=== PATIENT | male | born 1950 | race Caucasian/White ===

== ENCOUNTER 2021-01-28 09:15 | Outpatient (CLI) | payer OTHER, SELFPAY ==
[2021-01-28 10:03] LABS: Basophils # 0.1 10^3/uL (0.0-0.1); Eosinophils # 0.5 10^3/uL (0.0-0.8); Hematocrit 39.6 % (42.0-52.0); Hemoglobin 13.3 g/dL (11.7-16.6); Lymphocytes # 2.7 10^3/uL (0.8-4.8); Lymphocytes % 31.7 %; Mean Corpuscular HGB Conc 33.6 g/dL (30.0-36.0); Mean Corpuscular Hemoglobin 30.3 pg (28.0-34.0); Mean Corpuscular Volume 90.2 fL (80-94); Mean Platelet Volume 9.4 fL (7.4-10.4); Monocytes # 0.7 10^3/uL (0.2-0.9); Neutrophils # 4.55 10^3/uL (1.8-7.7); Nucleated Red Blood Cells % 0 %; Platelet Count 378 10^3/cmm (130-400); Red Blood Count 4.39 10^6/uL (4.1-5.3); Red Cell Distribution Width 13.3 % (12.1-15.1); White Blood Count 8.6 10^3/uL (4.0-10.0)
[2021-01-28 11:57] LABS: Lactate Dehydrogenase 156 U/L (135-225)
[2021-01-28 12:31] LABS: Immunoglobulin IGA 119 mg/dL (70-400); Immunoglobulin IGG 921 mg/dL (700-1600)
[2021-01-28 13:26] LABS: Immunoglobulin IGM 21 mg/dL (40-230)
[2021-01-29 07:28] LABS: PROTEIN, TOTAL 6.4 g/dL (6.1-8.1)
[2021-01-29 15:17] LABS: ABNORMAL PROTEIN BAND 1 0.1 g/dL (NONE DETECTED); ALPHA 1 GLOBULIN 0.3 g/dL (0.2-0.3); ALPHA 2 GLOBULIN 0.7 g/dL (0.5-0.9); BETA 1 GLOBULIN 0.4 g/dL (0.4-0.6); BETA 2 GLOBULIN 0.3 g/dL (0.2-0.5); GAMMA GLOBULIN 0.8 g/dL (0.8-1.7)
[2021-01-29 15:47] LABS: KAPPA LIGHT CHAIN, FREE, SERUM 175.9 mg/L (3.3-19.4); KAPPA/LAMBDA LIGHT CHAINS FREE 7.39 (0.26-1.65); LAMBDA LIGHT CHAIN, FREE, SERU 23.8 mg/L (5.7-26.3)
--- NOTE | 2021-02-01 12:56 | ONC CON_ITS ---
Dr. Flores New Patient Note Patient: Puneet Sheppard Unit #: [id number]: 1950 Dicatated By: Anastasia Flores M.D.Date of Visit: Jan 28, 2021 Onc MED New Patient/Consult Referring Physician: Dr. JOSE SEWELL M.D. History of Present Illness: Mr. Puneet Sheppard, is a 70-year-old gentleman with a history of gout, chronic renal disease, elevated PSA negative prostate biopsy, hypertension, found to have abnormal SPEP during routine follow-up and lab work-up done on December 06 2020, showed M spike is too small to quantitate, serum light chain showed kappa light chain 152, normal being 2.3-19.4, lambda chain 19 normal being 5.7-26.3, kappa/lambda ratio was 8 which is high as normal being 0.26-1.65. His other labs including CBC, white blood count was 8.6 hemoglobin 13.7 hematocrit 40.3 platelets 338,000 with a normal differential, creatinine was 1.57, calcium 9.5. Patient denies any new bony pains, denies any recurrent infections, denies any night sweats, denies any weight loss, denies any recurrent fever, denies any peripheral lymphadenopathy or abdominal fullness,. History of smoking but quit years ago, denies alcohol use. History of BPH and elevated PSA underwent prostate biopsy about a year ago it was negative. Past Medical History: Mr. Sheppard's medical history consists of bph, chronic kidney disease, elevated PSA, gout, hyperlipidemia, and hypertension. Past Surgical History: Mr. Sheppard's surgical/procedural history consists of colonoscopy and Eye Injury in 7. Medications: Cozaar 1 Tablet (of 100 mg) Oral, D 1000 1 Caplet (of 25 mcg ) Capsule Oral daily, hydroCHLOROthiazide 1 Tablet (of 25 mg) Oral daily, Pravastatin Sodium 1 Tablet (of 20 mg) Oral daily Allergies: No Known Allergies. Social History: Mr. Sheppard is single. Mr. Sheppard has never smoked. He has no history of drinking. Family History: Mr. Sheppard's mother at age 74: stroke. Mr. Sheppard's father at age 78: myocardial infarction. Mr. Sheppard has 2 brothers: 2 alive. Review Of Symptoms: Review of Systems is not available for this patient. Vital Signs: Performed on Jan 28, 2021 11:30: 0, 0, 0.00, 0.00 sq.m, 98 %, 61 /min, 18 /min, 160/90 mm(hg) (HIGH), 98.4 F, and 209.6 lbs (HIGH). Performance Status: 1 - No physically strenuous activity, but ambulatory and able to carry out light or sedentary work (e.g. office work, light house work). (ECOG) Physical Examination: ENMT - No mouth sores, no thrush, no jaundice, No lymphadenopathy, Respiratory - Lungs are clear to auscultation, Cardiovascular - Regular rate and rhythm of heart, Abdomen - Soft, bowel sounds present, Extremities - No visible edema. Lab/Imaging: Most recent lab results are not available for this patient. Impression: SPEP and elevated kappa/lambda light chain ratio with a high kappa light chain level etiology unclear could be due to plasma cell dyscrasia or lymphoplasmacytic lymphoproliferative disorder or amyloidosis History of gout History of BPH with elevated PSA with history of negative prostate biopsy Hypertension Chronic renal insufficiency Plan: Discussed with patient regarding his labs white blood count 8.6 hemoglobin 13.3 hematocrit 39.6 platelets 378,000 Clinically, patient has no new signs symptoms, there was incidental finding on his routine lab work-up which showed abnormal SPEP eg faint M protein and elevated kappa light chains and kappa/lambda ratio, etiology unclear could be due to underlying plasma cell dyscrasia lymphoplasmacytic lymphoproliferative disorder, or amyloidosis or serum light chain disease or gammopathy of unknown significance. At this point we will proceed with serum protein electrophoresis and immunofixation, repeat serum light chain assay, 24-hour urine protein electrophoresis and immunofixation, LDH and quantitative immunoglobulin Patient return to clinic in 2 weeks with above mentioned work-up to discuss further plan. Signed By: Anastasia Flores M.D. <<Signature on File>>
== END 2021-01-28 09:16 | disposition home or self-care (01) ==
PROVIDERS: Family Provider Emergency Medicine Emergency Medical Services; PCP Emergency Medicine Emergency Medical Services; Visit Provider Internal Medicine Hematology & Oncology
DX: R77.8 Other specified abnormalities of plasma proteins (principal); M10.9 Gout, unspecified; N40.0 Benign prostatic hyperplasia without lower urinary tract symptoms; R97.20 Elevated prostate specific antigen [PSA]; I10 Essential (primary) hypertension; N18.9 Chronic kidney disease, unspecified; Z79.899 Other long term (current) drug therapy
CPT/HCPCS: 82784; 83615; 83883; 84155; 84165; 85025; 99204

== ENCOUNTER 2021-02-14 05:37 | Outpatient (CLI) | payer OTHER, SELFPAY ==
--- NOTE | 2021-02-14 17:23 | ONC FU_ITS ---
Dr. Flores follow up note Patient: Puneet Sheppard Unit #: [id number]: 1950 Dicatated By: Anastasia Flores M.D.Date of Visit:Feb 14, 2021 Onc Med Follow-up/Prog Note History of Present Illness: Mr. Puneet Sheppard, is a 70-year-old gentleman with a history of gout, chronic renal disease, elevated PSA negative prostate biopsy, hypertension, found to have abnormal SPEP during routine follow-up and lab work-up done on December 06 2020, showed M spike is too small to quantitate, serum light chain showed kappa light chain 152, normal being 2.3-19.4, lambda chain 19 normal being 5.7-26.3, kappa/lambda ratio was 8 which is high as normal being 0.26-1.65. His other labs including CBC, white blood count was 8.6 hemoglobin 13.7 hematocrit 40.3 platelets 338,000 with a normal differential, creatinine was 1.57, calcium 9.5. Patient denies any new bony pains, denies any recurrent infections, denies any night sweats, denies any weight loss, denies any recurrent fever, denies any peripheral lymphadenopathy or abdominal fullness,. History of smoking but quit years ago, denies alcohol use. History of BPH and elevated PSA underwent prostate biopsy about a year ago it was negative. Repeat serum protein electrophoresis done on January 28, 2021 shows poorly defined band possibly M spike and immunofixation confirmed IgG lambda monoclonal band, IgG 921 IgM 21 IgA 119, 24-hour urine protein electrophoresis showed no abnormal protein is observed Serum light chain assay shows kappa light chain 175.9, normal being 3.3-19.4, lambda 23.8, within normal range and kappa/lambda ratio is 7.39 normal being 0.26-1.69 Came for follow-up, denies any specific complaints, denies any fever chills denies any nausea or vomiting denies any recurrent infections denies any bony pains denies any weight loss denies any night sweats denies any peripheral lymphadenopathy denies any abdominal fullness Medications: Cozaar 1 Tablet (of 100 mg) Oral, D 1000 1 Caplet (of 25 mcg ) Capsule Oral daily, hydroCHLOROthiazide 1 Tablet (of 25 mg) Oral daily, Pravastatin Sodium 1 Tablet (of 20 mg) Oral daily Allergies: No Known Allergies. Review of Systems: Review of Systems is not available for this patient. Vital Signs: Performed on Feb 14, 2021 08:37 Weight - 210.4 lbs (HIGH) BSA - 0.00 sq.m BMI - 0.00 Temperature - 99.0 F (HIGH) Pulse - 67 /min Respiration - 18 /min BP - 159/93 mm(hg) (HIGH) O2 Sat - 97 % Pain - 2 Fatigue - 0 Performance Status: 0 - Fully active, able to carry on all predisease activities without restrictions. (ECOG) Physical Examination: ENMT - No mouth sores, no thrush, no jaundice, no cervical lymphadenopathy, Respiratory - Lungs are clear to auscultation, Cardiovascular - Regular rate and rhythm of heart, Abdomen - Soft, bowel sounds present, Extremities - No visible edema. Lab/Imaging: Most recent lab results are not available for this patient. Impression: SPEP and elevated kappa/lambda light chain ratio with a high kappa light chain level etiology unclear could be due to plasma cell dyscrasia or lymphoplasmacytic lymphoproliferative disorder or amyloidosis Repeat SPEP Done on January 28, 2021 confirmed poorly defined band, possible M spike and serum protein immunofixation confirmed presence of IgG lambda monoclonal whereas serum light chain assay shows lambda light chain within normal range but elevated kappa light chain and kappa/blood ratio and quantitative immunoglobulin within normal range at, IgG 921, IgM 21, IgA 119 and 24-hour urine protein electrophoresis shows no abnormality History of gout History of BPH with elevated PSA with history of negative prostate biopsy Hypertension Chronic renal insufficiency Plan: Discussed with patient regarding his labs, his repeat serum protein electrophoresis shows poorly defined M spike and immunofixation confirmed this despite his due to IgG lambda monoclonal band but serum light chain assay shows lambda chains within normal range but elevated kappa light chain and kappa/lambda ratio, quantitative immunoglobulin within normal range, 24-hour urine protein electrophoresis shows no abnormality Overall picture consistent with etiology of elevated serum light chain could be reactive to autoimmune disorder or elevated due to chronic renal disease or may have underlying early plasma cell disorder or amyloidosis as per patient he has done some research on the Internet and think, it could be due to Covid vaccination and patient was reassured that any vaccination stimulate plasma cells in the bone marrow to create antibody and with his mild renal insufficiency there is a possibility but less likely discussed with him regarding bone marrow evaluation, patient wants to wait, so we will monitor him closely he will return to clinic in 1 month with a serum light chain assay and CMP, if abnormalities persist, will consider bone marrow evaluation to rule out malignant plasma cell disorder. And also consider CT scan of abdomen pelvis chest to rule out central lymphadenopathy or any abnormality suggestive of amyloidosis Signed By: Anastasia Flores M.D. <<Signature on File>>
== END 2021-02-14 05:38 | disposition home or self-care (01) ==
LOC: ONCMED 05:39
PROVIDERS: Family Provider Emergency Medicine Emergency Medical Services; PCP Emergency Medicine Emergency Medical Services; Visit Provider Internal Medicine Hematology & Oncology
DX: R77.8 Other specified abnormalities of plasma proteins (principal); I12.9 Hypertensive chronic kidney disease with stage 1 through stage 4 chronic kidney disease, or unspecified chronic kidney disease; N18.9 Chronic kidney disease, unspecified; Z87.891 Personal history of nicotine dependence
CPT/HCPCS: 99214

== ENCOUNTER 2021-03-18 12:28 | Outpatient (CLI) | payer OTHER, SELFPAY ==
[2021-03-18 13:56] LABS: Alanine Aminotransferase 17 U/L (0-41); Albumin Level 4.3 g/dL (3.5-5.2); Alkaline Phosphatase 60 IU/L (40-130); Anion Gap 14.6 (5-19); Aspartate Amino Transferase 16 U/L (0-40); Blood Urea Nitrogen 19 mg/dL (8-23); Carbon Dioxide 25 mmol/L (22-29); Chloride 106 mmol/L (98-107); Globulin 2.3 g/dL (1.3-4.6); Glucose 78 mg/dL (65-115); Osmolality Calculated 295 mOsm/kg (285-295); Potassium 3.6 mmol/L (3.5-5.1); Sodium 142 mmol/L (136-145); Total Bilirubin 0.4 mg/dL (0.15-1.2); Total Protein 6.6 g/dL (6.6-8.7)
--- NOTE | 2021-03-18 18:13 | ONC FU_ITS ---
Dr. Flores follow up note Patient: Puneet Sheppard Unit #: [id number]: 1950 Dicatated By: Anastasia Flores M.D.Date of Visit:March 18, 2021 Onc Med Follow-up/Prog Note History of Present Illness: Mr. Puneet Sheppard, is a 70-year-old gentleman with a history of gout, chronic renal disease, elevated PSA negative prostate biopsy, hypertension, found to have abnormal SPEP during routine follow-up and lab work-up done on December 06 2020, showed M spike is too small to quantitate, serum light chain showed kappa light chain 152, normal being 2.3-19.4, lambda chain 19 normal being 5.7-26.3, kappa/lambda ratio was 8 which is high as normal being 0.26-1.65. His other labs including CBC, white blood count was 8.6 hemoglobin 13.7 hematocrit 40.3 platelets 338,000 with a normal differential, creatinine was 1.57, calcium 9.5. Patient denies any new bony pains, denies any recurrent infections, denies any night sweats, denies any weight loss, denies any recurrent fever, denies any peripheral lymphadenopathy or abdominal fullness,. History of smoking but quit years ago, denies alcohol use. History of BPH and elevated PSA underwent prostate biopsy about a year ago it was negative. Repeat serum protein electrophoresis done on January 28, 2021 shows poorly defined band possibly M spike and immunofixation confirmed IgG lambda monoclonal band, IgG 921 IgM 21 IgA 119, 24-hour urine protein electrophoresis showed no abnormal protein is observed Serum light chain assay shows kappa light chain 175.9, normal being 3.3-19.4, lambda 23.8, within normal range and kappa/lambda ratio is 7.39 normal being 0.26-1.69 Came for follow-up, denies any specific complaints, no fever chills, no nausea or vomiting, no diarrhea or constipation, no new bony pains, appetite is good, no weight loss Medications: Cozaar 1 Tablet (of 100 mg) Oral, D 1000 1 Caplet (of 25 mcg ) Capsule Oral daily, hydroCHLOROthiazide 1 Tablet (of 25 mg) Oral daily, Pravastatin Sodium 1 Tablet (of 20 mg) Oral daily Allergies: No Known Allergies. Review of Systems: Review of Systems is not available for this patient. Vital Signs: Performed on March 18, 2021 14:09 Weight - 213.6 lbs (HIGH) BSA - 0.00 sq.m BMI - 0.00 Temperature - 97.5 F (LOW) Pulse - 84 /min Respiration - 18 /min BP - 152/92 mm(hg) (HIGH) O2 Sat - 93 % (LOW) Pain - 0 Fatigue - 3 Performance Status: 0 - Fully active, able to carry on all predisease activities without restrictions. (ECOG) Physical Examination: ENMT - No mouth sores, no thrush, no jaundice, Respiratory - Lungs are clear to auscultation, Cardiovascular - Regular rate and rhythm of heart , Abdomen - Soft, bowel sounds present, Extremities - No visible edema. Lab/Imaging: Most recent lab results are not available for this patient. Impression: SPEP and elevated kappa/lambda light chain ratio with a high kappa light chain level etiology unclear could be due to plasma cell dyscrasia or lymphoplasmacytic lymphoproliferative disorder or amyloidosis Repeat SPEP Done on January 28, 2021 confirmed poorly defined band, possible M spike and serum protein immunofixation confirmed presence of IgG lambda monoclonal whereas serum light chain assay shows lambda light chain within normal range but elevated kappa light chain and kappa/blood ratio and quantitative immunoglobulin within normal range at, IgG 921, IgM 21, IgA 119 and 24-hour urine protein electrophoresis shows no abnormality History of gout History of BPH with elevated PSA with history of negative prostate biopsy Hypertension Chronic renal insufficiency Plan: Discussed with patient regarding his labs CMP within normal limits, serum light chain assay is pending Clinically, patient doing well with no new signs symptom, CMP is within normal range, awaiting serum light chain assay if it shows further progression, will proceed with bone marrow evaluation and if it shows no increase in plasma cell population, then will consider CT scan of chest abdomen pelvis to rule out central lymphadenopathy/organomegaly. Return to clinic after reviewing serum light chain assay, If it shows progression, then week after bone marrow evaluation, if stable or improvement, then will repeat SPEP/immunofixation/serum light chain assay in 3 months Signed By: Anastasia Flores M.D. <<Signature on File>>
[2021-03-19 13:12] LABS: KAPPA LIGHT CHAIN, FREE, SERUM 154.7 mg/L (3.3-19.4); KAPPA/LAMBDA LIGHT CHAINS FREE 7.03 (0.26-1.65)
== END 2021-03-18 12:29 | disposition home or self-care (01) ==
LOC: ONCMED 12:30
PROVIDERS: Family Provider Emergency Medicine Emergency Medical Services; PCP Emergency Medicine Emergency Medical Services; Visit Provider Internal Medicine Hematology & Oncology
DX: R74.8 Abnormal levels of other serum enzymes (principal); M10.9 Gout, unspecified; N40.0 Benign prostatic hyperplasia without lower urinary tract symptoms; R97.20 Elevated prostate specific antigen [PSA]; I10 Essential (primary) hypertension; N18.9 Chronic kidney disease, unspecified; Z79.899 Other long term (current) drug therapy
CPT/HCPCS: 36415; 80053; 83883; 99214

== ENCOUNTER → 2024-05-17 11:01 | Outpatient (BNVA) | payer OTHER, SELFPAY | PROVIDERS: Family Provider Emergency Medicine Emergency Medical Services; PCP Emergency Medicine Emergency Medical Services; Visit Provider Student in an Organized Health Care Education/Training Program | DX: M79.644 Pain in right finger(s) (principal); M67.441 Ganglion, right hand | CPT/HCPCS: 73130; 99204 ==

== ENCOUNTER 2024-07-07 07:00 | Day surgery (SDC) | payer OTHER, SELFPAY ==
[2024-07-07] VITALS (11 sets, daily range): BP systolic 142–173; BP diastolic 89–100; PULSE 62–76; RESP 12–18; TEMP 36.3; O2SAT 96–99; BMI 29.9
[2024-07-07] MEDS: acetaminophen 1,000 MG/100 ML PIGGYBACK 400 MG IV (07:33)
[2024-07-07] MEDS: sodium chloride 0.9% 1,000 ML 30 ML IV (07:34)
[2024-07-07] MEDS: ketorolac 30 mg/mL INJ IVP (07:41)
--- NOTE | 2024-07-07 08:10 | W.PM.OPSFHP ---
Same Day Surgery H&P Indication for Procedure/HPI DATE OF PROCEDURE: July 07, 2024 CHIEF COMPLAINT/INDICATIONFOR SURGICAL PROCEDURE: Right index finger cyst PREOP DIAGNOSIS: Right index finger cyst PLANNED PROCEDURE: Operation Date: 07/07/24 08:40 Proposed Procedures p Excision Mass/Lesion Upper Extremity Finger Cyst Excision Left Index(Right) - Chris Linda, Medications/Allergies* Home Medications Medication Instructions Recorded Confirmed Type hydrochlorothiazide 12.5 mg tablet 12.5 mg PO DAILY 05/17/24 07/06/24 History losartan 100 mg tablet 100 mg PO DAILY 05/17/24 07/06/24 History pravastatin 20 mg tablet 20 mg PO DAILY 05/17/24 07/06/24 History ergocalciferol (vitamin D2) 10 mcg 10 mcg PO DAILY 07/06/24 07/06/24 History (400 unit) tablet Allergies/Adverse Reactions Allergy/AdvReac Type Severity Reaction Status Date / Time No Known Allergies Allergy Verified 07/06/24 15:13 Current Medications: Generic Name Dose Route Start Last Admin Trade Name Yancy PRN Reason Stop Dose Admin Sodium Chloride 1,000 mls @ 30 mls/hr 07/07/24 07:15 07/07/24 07:34 Sodium Chloride 0.9% IV 07/08/24 07:14 30 mls/hr .Q24H REY Administration Pertinent History/Comorbid Conditions* Social History Smoking and tobacco/nicotine status: unknown if used tobacco/nicotine Pertinent Exam Findings alert, oriented x 3, operative site marked and procedure specific exam findings For to detailed orthopedic examination on 05/17/2024: Examination of right hand: Examination right hand patient able to make a fist and extend the digits. He does have a palpable dorsal mucous cyst over the right index finger with subtle clinical deformity appreciated. Tenderness to palpation over the cyst as well as mildly positive Tinel's sensations intact light touch distally fingertip warm well-perfused brisk capillary refill less than 2 seconds. Recommendations Surgery/Procedure today Other Plans: Plan to proceed to the OR today for right index finger cyst excision we talked about the ins and outs procedure risk benefits complication alternatives surgery and through shared decision make elects proceed with surgical intervention. All questions answered at this time. Patient would like local only. Coding Level of Care Code Acute Code for [facility] Fwd
[2024-07-07] MEDS: ceFAZolin 2,000 MG in sodium chloride 0.9% (plus) 50 ML 100 MG IV (09:07)
[2024-07-07] MEDS: ROPivacaine 0.5% SDV 30 mL 150 MG INJECTION (09:34)
[2024-07-07] MEDS: BUPivacaine 0.5% INJ 30 mL XX (09:34)
--- NOTE | 2024-07-07 09:41 | P.BOP_ITS ---
Date of Procedure: 07/07/2024 Surgeon: Chris Linda DO [employer] Emotionally Disturbed(s): None Procedure(s) performed: Right index finger cyst excision Findings of the procedure(s): Patient was found to have a large right index finger cyst over the dorsal aspect of the middle phalanx underwent procedure as planned without issues or complications taken to recovery in stable condition Estimated blood loss: 2 mL Specimen(s) removed: Right index finger cyst excised and sent for pathology Post-operative diagnosis: Right index finger cyst
--- NOTE | 2024-07-07 09:42 | P.OP_ITS ---
Operative Report Date of procedure: July 07, 2024 Surgeon: Chris Linda DO Procedure: Preoperative diagnosis: Right index finger dorsal cyst post-op diagnosis: Right?index?finger?dorsal cyst Procedure done: Right index finger?dorsal cyst excision (2 cm x 1 cm x 0.5 cm) Surgeon: Chris Linda DO Estimated blood loss: 2mL Tourniquet time finger turnicot?9 minutes IV fluids: 100 mL Complications: None Findings: See operative report narrative Condition: stable Disposition: same day Brief History: Patient presents to the outpatient setting with findings consistent with a right index finger?cyst.? Patient has been worked up in the outpatient setting and is failed conservative treatment approach.? Patient has right index finger noticeable?dorsal?cyst?over the middle phalanx . Patient's failed conservative treatment up to this point and wishes to have this removed. Patient wishes to proceed with surgical intervention.? We talked about the risk benefits complications and alternatives with surgical nonsurgical treatment options.? Understanding risk of surgery patient agrees to proceed with a right index finger dorsal cyst excision.? All questions answered. Procedure: Patient was seen evaluated in the preoperative holding area.? Consent was reviewed and signed with patient.? Correct extremity was then marked.? Patient elected to previous proceed with local anesthesia once ready for surgery patient was then taken back to the operative suite patient was placed in supine position and all bony prominences well-padded the patient was properly secured to the bed.? Armboard was applied to the right upper extremity. This point time the right upper extremity was then prepped and draped in standard orthopedic fashion.? A final timeout was performed.? Patient received appropriate preope rative antibiotics. Prior to proceeding with incision sites I then performed digital block of the right index finger under sterile aseptic technique Finger turnicot was used over the right index finger to exsanguinate the digit. ? Right index finger was then identified as well as the?dorsal?cyst?over the middle phalanx. At this point in time I utilized a standard incision directly over the cyst sharp scalpel incision was made through skin only and then switched to Littler dissection scissors I then mobilized circumferentially around the cyst this was significantly large in size roughly 2 cm x 1 cm x 0.5 cm. I did violate the cyst capsule and clear gelatinous fluid was expressed. This allowed for appropriate mobilization I was able to dissect this with a scalpel and dissection scissors off of the extensor mechanism. This did appear to communicate with the PIP joint. I dissected this all the way to the stalk and utilized bipolar electrocautery to coagulate and remove the cyst to its entirety and was sent for pathology. Once again I thoroughly irrigated the wound bed and utilize electrocautery throughout the wound bed to prevent hopefully any other further cyst recurrence I did utilize a 3-0 Monocryl suture deep to reapproximate the rent in the communication to the capsule. I then subsequently thoroughly irrigated the wound bed finger turnicot was removed. wound bed was then thoroughly irrigated hemostasis was maintained with bipolar electrocautery.? Next I closed the incision with interrupted nylon suture.? Incision sites were then dressed with Xeroform 4 x 4's Kerlix Benji wrap and an Bernardo wrap.? Patient was local only and subsequently was taken directly to recovery in the postoperative area. Disposition: Patient taken to recovery in stable condition recovering well.? Dressing on in place clean dry and intact.? Patient was receive appropriate discharge instruction as well as pain medication postoperatively.? Patient may be allowed weightbearing as tolerated to the right hand and encourage range of motion once dressing come down after 72 hours.? Patient to follow-up with me in the office in 2 weeks.? Patient understands and agrees with current plan.? All questions answered.
== END 2024-07-07 10:10 | disposition home or self-care (01) ==
PROVIDERS: Visit Provider Student in an Organized Health Care Education/Training Program
PROC: (CPT 26160; principal; 2024-07-07 08:40)
DX: M67.441 Ganglion, right hand (principal)
CPT/HCPCS: 26160; 88304; J0131; J0690; J1885; J2704; J2795; J3010; J3490; J7030

== ENCOUNTER → 2024-07-21 09:46 | Outpatient (BNVA) | payer OTHER, SELFPAY | PROVIDERS: Visit Provider Physician Assistant | DX: Z98.890 Other specified postprocedural states (principal) | CPT/HCPCS: 99024 ==

== ENCOUNTER 2024-12-20 08:54 | Outpatient (CLI) | payer OTHER, SELFPAY ==
[2024-12-20 10:16] LABS: Albumin Level 4.3 g/dL (3.5-5.2); Blood Urea Nitrogen 18 mg/dL (8-23); Calcium 9.8 mg/dL (8.5-10.5); Carbon Dioxide 25 mmol/L (22-29); Chloride 102 mmol/L (98-107); Glucose 111 mg/dL (65-115); Phosphorus 2.6 mg/dL (2.5-4.5); Sodium 138 mmol/L (136-145)
[2024-12-20 10:20] LABS: Calcium 9.8 mg/dL (8.5-10.5)
[2024-12-20 10:28] LABS: Creatinine Urine, Random 110 mg/dL (39-259); Microalbum Creatinine Ratio Ur 18 mg/dL (0-20); Microalbumin Random Urine 2 ug/dL (0-20)
[2024-12-20 10:48] LABS: Parathyroid Hormone 65.4 pg/mL (15-65)
== END 2024-12-20 08:55 | disposition home or self-care (01) ==
PROVIDERS: Visit Provider Internal Medicine
DX: N18.32 Chronic kidney disease, stage 3b (principal)
CPT/HCPCS: 36415; 80069; 82044; 82310; 83970

== ENCOUNTER 2025-06-26 08:58 | Outpatient (CLI) | payer OTHER, SELFPAY ==
[2025-06-26 10:32] LABS: Hematocrit 38.3 % (37-53); Hemoglobin 13.60 g/dL (11.27-16.99); Mean Corpuscular HGB Conc 35.5 g/dL (30-55); Mean Corpuscular Hemoglobin 31.4 pg (27-33); Mean Corpuscular Volume 88.5 fl (82-101); Nucleated Red Blood Cells % 0 %; Platelet Count 341 10^3/cmm (157-399); Red Blood Count 4.33 10^6/uL (3.85-5.65); White Blood Count 8.04 10^3/uL (3.29-11.43)
[2025-06-26 10:55] LABS: Albumin Level 4.2 g/dL (3.5-5.2); Anion Gap 15.5 (5-19); Blood Urea Nitrogen 20 mg/dL (8-23); Calcium 9.5 mg/dL (8.5-10.5); Carbon Dioxide 24 mmol/L (22-29); Chloride 105 mmol/L (98-107); Glucose 107 mg/dL (65-115); Potassium 4.5 mmol/L (3.5-5.1); Sodium 140 mmol/L (136-145)
[2025-06-26 11:02] LABS: Creatinine Urine, Random 201 mg/dL (39-259); Microalbum Creatinine Ratio Ur 40 mg/dL (0-20)
[2025-06-26 11:04] LABS: Calcium 9.5 mg/dL (8.5-10.5)
== END 2025-06-26 08:59 | disposition home or self-care (01) ==
LOC: LAB 09:00
PROVIDERS: PCP Family Medicine; Visit Provider Registered Nurse
DX: N18.32 Chronic kidney disease, stage 3b (principal)
CPT/HCPCS: 36415; 80069; 82044; 82310; 83970; 85025